=== PATIENT | male | born 1940 | race African-American/Black ===

== ENCOUNTER 2021-01-06 23:39 | Emergency (ER) | payer SELFPAY ==
[~2021-01-06] VITALS: Ht 188 cm; Wt 75.0 kg
[2021-01-07] MEDS ORDERED: SODIUM CHLORIDE 0.9% 1,000 ML IV ONE (00:30)
[2021-01-07 01:04] LABS: BASOPHILS % 0.7 % (0.0-2.0); EOSINOPHILS % 2.7 % (0.0-5.0); HEMATOCRIT. 34.9 % (42.0-52.0); HEMOGLOBIN. 11.3 g/dL (14.0-18.0); LYMPHOCYTES % 27.4 % (20.0-50.0); MEAN CORPUSCULAR HEMOGLOBIN 29.4 pg (28.0-32.0); MEAN CORPUSCULAR VOLUME 90.6 fL (80.0-94.0); MEAN PLATELET VOLUME 7.4 fl (7.4-10.4); MONOCYTES % 7.1 % (2.0-8.0); NEUTROPHILS % 62.1 % (40.0-76.0); PLATELET 261 x1000/uL (130-400); RED BLOOD CELL COUNT 3.85 mill/uL (4.7-6.1)
[2021-01-07 01:13] LABS: CHLORIDE 112 mEq/L (98-107)
[2021-01-07 04:39] VITALS: BP 133/71
[2021-01-07 05:35] LABS: CLARITY URINE CLEAR (CLEAR); COLOR URINE YELLOW (YELLOW); KETONES URINE NEGATIVE (NEGATIVE); LEUKOCYTE ESTERASE URINE NEGATIVE (NEGATIVE); NITRITE URINE NEGATIVE (NEGATIVE); OCCULT BLOOD URINE NEGATIVE (NEGATIVE); PROTEIN URINE NEGATIVE (NEGATIVE); SPECIFIC GRAVITY URINE 1.014 (1.005-1.030)
== END 2021-01-07 04:48 | disposition home or self-care (01) ==
LOC: ER 23:39
DX: R41.0 Disorientation, unspecified (principal); I10 Essential (primary) hypertension
CPT/HCPCS: 36415; 70450; 71045; 80053; 81003; 84443; 84484; 85025; 93005; 96360; 96361; 99285; J7030

== ENCOUNTER 2021-01-07 07:52 | Inpatient (IN) | payer BC, MEDICAID ==
[~2021-01-07] VITALS: Ht 188 cm; Wt 81.2 kg
[2021-01-07 09:41] LABS: BASOPHILS % 0.8 % (0.0-2.0); EOSINOPHILS % 1.7 % (0.0-5.0); HEMATOCRIT. 35.8 % (42.0-52.0); HEMOGLOBIN. 11.3 g/dL (14.0-18.0); LYMPHOCYTES % 17.6 % (20.0-50.0); MEAN CORPUSCULAR HEMOGLOBIN 28.2 pg (28.0-32.0); MEAN CORPUSCULAR VOLUME 89.5 fL (80.0-94.0); MEAN PLATELET VOLUME 7.5 fl (7.4-10.4); MONOCYTES % 5.5 % (2.0-8.0); NEUTROPHILS % 74.4 % (40.0-76.0); PLATELET 229 x1000/uL (130-400); RED BLOOD CELL COUNT 3.99 mill/uL (4.7-6.1); RED CELL DISTRIBUTION WIDTH 16.3 % (11.6-14.6)
[2021-01-07 09:43] LABS: CHLORIDE 111 mEq/L (98-107)
[2021-01-07] MEDS ORDERED: MAGNESIUM/ALUMINUM HYDROXIDE/SIMETHICONE 30ML UDC PO PRN (11:00)
[2021-01-07] MEDS ORDERED: NA PHOS,M-B/NA PHOS,DI-BA ENEMA 118ML PR PRN (11:00)
[2021-01-07] MEDS ORDERED: IPRATROPIUM/ALBUTEROL 0.5-3(2.5)MG/3ML NEB NEB PRN (11:00)
[2021-01-07] MEDS ORDERED: GUAIFENESIN 200MG/10ML SUGAR FREE UDC PO PRN (11:00)
[2021-01-07] MEDS ORDERED: HYDROCODONE/ACETAMINOPHEN 5/325MG TABLET PO PRN (11:00)
[2021-01-07] MEDS ORDERED: MORPHINE SULFATE 2 MG/ML CPJ (NOT FOR IM USE) IV PRN (11:00)
[2021-01-07] MEDS: SODIUM CHLORIDE 0.45% 1,000 ML IV SCH (12:14)
[2021-01-07] MEDS: ENOXAPARIN 40MG/0.4ML SYR SUBCUT SCH (12:15)
[2021-01-07] MEDS ORDERED: LORAZEPAM 2MG/ML CPJ IV NR (14:45)
[2021-01-07] MEDS: DIPHENHYDRAMINE 50MG/ML VIAL IV PRN ×2 (14:47→21:51)
[2021-01-07 18:16] VITALS: BP 168/102
[2021-01-07 20:00] VITALS: BP 167/90
[2021-01-07] MEDS: CLONIDINE 0.1MG TABLET PO PRN (21:51)
[2021-01-07] MEDS ORDERED: NALOXONE HCL 0.4MG/ML VIAL IV PRN (23:30)
[2021-01-08] VITALS: BP 141/90
[2021-01-08 04:00] VITALS: BP 149/82
[2021-01-08] MEDS: DIPHENHYDRAMINE 50MG/ML VIAL IV PRN (05:08)
[2021-01-08 07:06] LABS: BASOPHILS % 0.9 % (0.0-2.0); EOSINOPHILS % 2.2 % (0.0-5.0); HEMATOCRIT. 34.8 % (42.0-52.0); HEMOGLOBIN. 11.5 g/dL (14.0-18.0); MEAN CORPUSCULAR HEMOGLOBIN 29.3 pg (28.0-32.0); MEAN CORPUSCULAR VOLUME 88.6 fL (80.0-94.0); MEAN PLATELET VOLUME 7.2 fl (7.4-10.4); MONOCYTES % 6.3 % (2.0-8.0); NEUTROPHILS % 71.6 % (40.0-76.0); PLATELET 221 x1000/uL (130-400); RED BLOOD CELL COUNT 3.93 mill/uL (4.7-6.1); RED CELL DISTRIBUTION WIDTH 16.4 % (11.6-14.6)
[2021-01-08 07:15] LABS: CHLORIDE 110 mEq/L (98-107)
[2021-01-08 08:00] VITALS: BP 130/86
[2021-01-08] MEDS: ASPIRIN 81MG EC TABLET PO SCH (09:06)
[2021-01-08 12:00] VITALS: BP 123/68
[2021-01-08] MEDS: ENOXAPARIN 40MG/0.4ML SYR SUBCUT SCH (13:16)
[2021-01-08] MEDS: SODIUM CHLORIDE 0.45% 1,000 ML IV SCH (13:16)
[2021-01-08 16:00] VITALS: BP 136/83
[2021-01-08 20:00] VITALS: BP 127/80
[2021-01-08] MEDS ORDERED: *PATIENT'S OWN MEDICATION STORAGE XX SCH (22:30)
[2021-01-09] VITALS: BP 108/70
[2021-01-09 04:00] VITALS: BP 125/77
[2021-01-09] MEDS: ACETAMINOPHEN 325MG TABLET PO PRN (05:09)
[2021-01-09 08:00] VITALS: BP 153/84
[2021-01-09] MEDS: ASPIRIN 81MG EC TABLET PO SCH (09:04)
[2021-01-09 11:09] LABS: VITAMIN B12 SERUM 566 pg/mL (211-911)
[2021-01-09 12:00] VITALS: BP 140/74
[2021-01-09] MEDS: ENOXAPARIN 40MG/0.4ML SYR SUBCUT SCH (14:16)
[2021-01-09 16:00] VITALS: BP 148/82
[2021-01-09 20:00] VITALS: BP 178/95
[2021-01-09] MEDS: DIPHENHYDRAMINE 50MG/ML VIAL IV PRN (20:04)
[2021-01-10] VITALS: BP 150/79
[2021-01-10 04:00] VITALS: BP 156/75
[2021-01-10 08:00] VITALS: BP 162/96
[2021-01-10] MEDS: ASPIRIN 81MG EC TABLET PO SCH (08:58)
[2021-01-10] MEDS: SODIUM CHLORIDE 0.45% 1,000 ML IV SCH ×2 (11:13→11:14)
[2021-01-10 12:00] VITALS: BP 135/69
[2021-01-10] MEDS: ENOXAPARIN 40MG/0.4ML SYR SUBCUT SCH (13:28)
[2021-01-10 16:00] VITALS: BP 129/88
[2021-01-10 20:00] VITALS: BP 169/105
[2021-01-10] MEDS: DIPHENHYDRAMINE 50MG/ML VIAL IV PRN (20:38)
[2021-01-10] MEDS: CLONIDINE 0.1MG TABLET PO PRN (20:39)
[2021-01-11] VITALS: BP 137/71
[2021-01-11 04:00] VITALS: BP 121/68
[2021-01-11 08:00] VITALS: BP 124/57
[2021-01-11] MEDS: ASPIRIN 81MG EC TABLET PO SCH (08:52)
[2021-01-11] MEDS: SODIUM CHLORIDE 0.45% 1,000 ML IV SCH (11:32)
[2021-01-11] MEDS: LORAZEPAM 2MG/ML CPJ IV PRN ×2 (11:46→15:53)
[2021-01-11 12:00] VITALS: BP 137/65
[2021-01-11] MEDS: ENOXAPARIN 40MG/0.4ML SYR SUBCUT SCH (12:16)
[2021-01-11 16:00] VITALS: BP 118/69
[2021-01-11 20:00] VITALS: BP 159/84
[2021-01-11] MEDS: MEMANTINE HCL 5MG TABLET PO SCH (21:01)
[2021-01-12] VITALS: BP 141/85
[2021-01-12 04:00] VITALS: BP 141/80
[2021-01-12 08:00] VITALS: BP 126/62
[2021-01-12] MEDS: MEMANTINE HCL 5MG TABLET PO SCH (09:52)
[2021-01-12] MEDS: ASPIRIN 81MG EC TABLET PO SCH (09:52)
[2021-01-12] MEDS: SODIUM CHLORIDE 0.45% 1,000 ML IV SCH (10:24)
[2021-01-12 12:00] VITALS: BP 135/75
[2021-01-12] MEDS: LORAZEPAM 2MG/ML CPJ IV PRN (12:04)
[2021-01-12] MEDS: ENOXAPARIN 40MG/0.4ML SYR SUBCUT SCH (13:19)
[2021-01-12 16:00] VITALS: BP 153/85
[2021-01-12 20:00] VITALS: BP 168/93
[2021-01-12] MEDS: CLONIDINE 0.1MG TABLET PO PRN (21:33)
[2021-01-12] MEDS: DIPHENHYDRAMINE 50MG/ML VIAL IV PRN (21:33)
[2021-01-13] VITALS: BP 138/75
[2021-01-13 04:00] VITALS: BP 126/73
[2021-01-13 08:00] VITALS: BP 114/65
[2021-01-13] MEDS: MEMANTINE HCL 5MG TABLET PO SCH (09:20)
[2021-01-13] MEDS: ASPIRIN 81MG EC TABLET PO SCH (09:20)
[2021-01-13] MEDS: SODIUM CHLORIDE 0.45% 1,000 ML IV SCH (11:21)
[2021-01-13 12:00] VITALS: BP 131/77
[2021-01-13] MEDS: ENOXAPARIN 40MG/0.4ML SYR SUBCUT SCH (12:55)
[2021-01-13] MEDS: DIPHENHYDRAMINE 50MG/ML VIAL IV PRN (13:19)
[2021-01-13 16:00] VITALS: BP 120/74
[2021-01-13] MEDS: LORAZEPAM 2MG/ML CPJ IV PRN (16:26)
[2021-01-13 20:00] VITALS: BP 134/80
[2021-01-14] VITALS: BP 123/65
[2021-01-14 04:00] VITALS: BP 138/71
[2021-01-14 06:31] LABS: BASOPHILS % 1.1 % (0.0-2.0); EOSINOPHILS % 2.5 % (0.0-5.0); HEMATOCRIT. 33.4 % (42.0-52.0); HEMOGLOBIN. 11.3 g/dL (14.0-18.0); LYMPHOCYTES % 25.3 % (20.0-50.0); MEAN CORPUSCULAR VOLUME 88.8 fL (80.0-94.0); MONOCYTES % 8.2 % (2.0-8.0); NEUTROPHILS % 62.9 % (40.0-76.0); PLATELET 240 x1000/uL (130-400); RED BLOOD CELL COUNT 3.76 mill/uL (4.7-6.1); RED CELL DISTRIBUTION WIDTH 16.4 % (11.6-14.6)
[2021-01-14 06:32] LABS: CHLORIDE 108 mEq/L (98-107)
[2021-01-14 08:00] VITALS: BP 139/65
[2021-01-14] MEDS: MEMANTINE HCL 5MG TABLET PO SCH (09:04)
[2021-01-14] MEDS: ASPIRIN 81MG EC TABLET PO SCH (09:05)
[2021-01-14] MEDS: LORAZEPAM 2MG/ML CPJ IV PRN ×2 (09:27→17:11)
[2021-01-14 11:55] VITALS: BP 125/57
[2021-01-14] MEDS: SODIUM CHLORIDE 0.45% 1,000 ML IV SCH (12:39)
[2021-01-14] MEDS: ENOXAPARIN 40MG/0.4ML SYR SUBCUT SCH (12:50)
[2021-01-14 16:00] VITALS: BP 148/87
[2021-01-14 20:00] VITALS: BP 151/82
[2021-01-15] VITALS: BP 147/80
[2021-01-15 04:00] VITALS: BP 118/58
[2021-01-15] MEDS: MEMANTINE HCL 5MG TABLET PO SCH (09:01)
[2021-01-15] MEDS: ASPIRIN 81MG EC TABLET PO SCH (09:02)
[2021-01-15] MEDS: LORAZEPAM 2MG/ML CPJ IV PRN ×2 (09:02→21:29)
[2021-01-15] MEDS: SODIUM CHLORIDE 0.45% 1,000 ML IV SCH (11:40)
[2021-01-15 12:00] VITALS: BP 150/97
[2021-01-15] MEDS: ENOXAPARIN 40MG/0.4ML SYR SUBCUT SCH (13:36)
[2021-01-15 16:00] VITALS: BP 139/70
[2021-01-15 20:00] VITALS: BP 167/96
[2021-01-15] MEDS: DIPHENHYDRAMINE 50MG/ML VIAL IV PRN (22:38)
[2021-01-16 00:08] VITALS: BP 171/81
[2021-01-16 08:00] VITALS: BP 139/80
[2021-01-16] MEDS: MEMANTINE HCL 5MG TABLET PO SCH (11:14)
[2021-01-16] MEDS: ASPIRIN 81MG EC TABLET PO SCH (11:14)
[2021-01-16] MEDS: SODIUM CHLORIDE 0.45% 1,000 ML IV SCH (11:14)
[2021-01-16 12:00] VITALS: BP 154/89
[2021-01-16] MEDS: ENOXAPARIN 40MG/0.4ML SYR SUBCUT SCH (13:00)
[2021-01-16 16:00] VITALS: BP 169/87
[2021-01-16 20:39] VITALS: BP 165/95
[2021-01-16] MEDS: CLONIDINE 0.1MG TABLET PO PRN (22:48)
[2021-01-16] MEDS ORDERED: NIFE-72 PO (22:58)
[2021-01-16] MEDS ORDERED: ASPI-1160 PO (22:58)
[2021-01-16] MEDS ORDERED: TRAZ-251 PO (22:58)
[2021-01-16] MEDS ORDERED: METO25TA6 PO (22:58)
[2021-01-16] MEDS ORDERED: QUET25TA36 PO (22:58)
[2021-01-16] MEDS ORDERED: TAMS-11 (22:58)
[2021-01-16] MEDS ORDERED: ATOR40TA70 PO (22:58)
[2021-01-17 00:23] VITALS: BP 148/76
[2021-01-17 04:00] VITALS: BP 153/77
[2021-01-17 08:00] VITALS: BP 136/69
[2021-01-17] MEDS: MEMANTINE HCL 5MG TABLET PO SCH (09:02)
[2021-01-17] MEDS: ASPIRIN 81MG EC TABLET PO SCH (09:02)
[2021-01-17 12:00] VITALS: BP 149/78
[2021-01-17] MEDS: ENOXAPARIN 40MG/0.4ML SYR SUBCUT SCH (13:45)
[2021-01-17 16:00] VITALS: BP 163/106
[2021-01-17] MEDS: LORAZEPAM 1MG TABLET PO PRN (16:46)
[2021-01-17] MEDS: CLONIDINE 0.1MG TABLET PO PRN (18:19)
[2021-01-17 20:00] VITALS: BP 119/75
[2021-01-17] MEDS: DIPHENHYDRAMINE 50MG/ML VIAL IV PRN (23:11)
[2021-01-18 04:00] VITALS: BP 157/86
[2021-01-18 08:00] VITALS: BP 143/81
[2021-01-18] MEDS: ASPIRIN 81MG EC TABLET PO SCH (09:27)
[2021-01-18] MEDS: MEMANTINE HCL 5MG TABLET PO SCH (09:27)
[2021-01-18 12:00] VITALS: BP 137/75
[2021-01-18] MEDS: ENOXAPARIN 40MG/0.4ML SYR SUBCUT SCH (13:47)
[2021-01-18] MEDS: DIPHENHYDRAMINE 50MG/ML VIAL IV PRN ×2 (13:47→20:45)
[2021-01-18 16:00] VITALS: BP 143/76
[2021-01-18] MEDS: RISPERIDONE 0.5MG TABLET PO SCH (18:44)
[2021-01-18 20:00] VITALS: BP 142/72
[2021-01-18] MEDS: LORAZEPAM 1MG TABLET PO PRN (23:40)
[2021-01-19] VITALS: BP 138/71
[2021-01-19 04:00] VITALS: BP 132/74
[2021-01-19 08:00] VITALS: BP 142/61
[2021-01-19] MEDS: DIPHENHYDRAMINE 50MG/ML VIAL IV PRN ×2 (09:49→20:33)
[2021-01-19] MEDS: MEMANTINE HCL 5MG TABLET PO SCH (09:49)
[2021-01-19] MEDS: RISPERIDONE 0.5MG TABLET PO SCH ×2 (09:49→17:09)
[2021-01-19] MEDS: ASPIRIN 81MG EC TABLET PO SCH (09:49)
[2021-01-19 12:00] VITALS: BP 130/79
[2021-01-19] MEDS: ENOXAPARIN 40MG/0.4ML SYR SUBCUT SCH (12:38)
[2021-01-19 16:00] VITALS: BP 123/60
[2021-01-19 20:00] VITALS: BP 150/60
[2021-01-19] MEDS: QUETIAPINE FUMARATE 25MG TABLET PO SCH (20:33)
[2021-01-19] MEDS: ONDANSETRON HCL 4MG/2ML INJ IV PRN (21:21)
[2021-01-19] MEDS: LORAZEPAM 1MG TABLET PO PRN (21:21)
[2021-01-20] VITALS: BP 152/78
[2021-01-20] MEDS: LORAZEPAM 1MG TABLET PO PRN ×3 (02:32→22:50)
[2021-01-20 04:00] VITALS: BP 157/76
[2021-01-20] MEDS: ONDANSETRON HCL 4MG/2ML INJ IV PRN (06:25)
[2021-01-20] MEDS: DIPHENHYDRAMINE 50MG/ML VIAL IV PRN (06:26)
[2021-01-20 08:00] VITALS: BP 138/75
[2021-01-20] MEDS: ASPIRIN 81MG EC TABLET PO SCH (09:51)
[2021-01-20] MEDS: MEMANTINE HCL 5MG TABLET PO SCH (09:51)
[2021-01-20 12:00] VITALS: BP 178/83
[2021-01-20] MEDS: ENOXAPARIN 40MG/0.4ML SYR SUBCUT SCH (13:14)
[2021-01-20 16:00] VITALS: BP 168/98
[2021-01-20 20:00] VITALS: BP 177/92
[2021-01-20] MEDS: RISPERIDONE 0.5MG TABLET PO SCH (22:08)
[2021-01-20] MEDS: QUETIAPINE FUMARATE 25MG TABLET PO SCH (22:08)
[2021-01-20] MEDS: CLONIDINE 0.1MG TABLET PO PRN (22:09)
[2021-01-21] VITALS: BP 117/78
[2021-01-21 04:00] VITALS: BP 126/64
[2021-01-21 06:37] LABS: BASOPHILS % 0.6 % (0.0-2.0); EOSINOPHILS % 2.8 % (0.0-5.0); HEMATOCRIT. 33.2 % (42.0-52.0); HEMOGLOBIN. 11.2 g/dL (14.0-18.0); LYMPHOCYTES % 26.1 % (20.0-50.0); MEAN CORPUSCULAR HEMOGLOBIN 30.1 pg (28.0-32.0); MEAN CORPUSCULAR VOLUME 89.1 fL (80.0-94.0); MEAN PLATELET VOLUME 7.8 fl (7.4-10.4); MONOCYTES % 7.6 % (2.0-8.0); NEUTROPHILS % 62.9 % (40.0-76.0); PLATELET 215 x1000/uL (130-400); RED BLOOD CELL COUNT 3.73 mill/uL (4.7-6.1); RED CELL DISTRIBUTION WIDTH 16.3 % (11.6-14.6)
[2021-01-21 08:00] VITALS: BP 164/83
[2021-01-21] MEDS: ASPIRIN 81MG EC TABLET PO SCH (10:06)
[2021-01-21] MEDS: MEMANTINE HCL 5MG TABLET PO SCH (10:06)
[2021-01-21] MEDS: RISPERIDONE 0.5MG TABLET PO SCH ×2 (10:07→17:19)
[2021-01-21 12:00] VITALS: BP 142/67
[2021-01-21] MEDS: ENOXAPARIN 40MG/0.4ML SYR SUBCUT SCH (13:51)
[2021-01-21 16:00] VITALS: BP 158/82
[2021-01-21 20:42] VITALS: BP 169/85
[2021-01-21] MEDS: QUETIAPINE FUMARATE 25MG TABLET PO SCH (21:31)
[2021-01-21] MEDS: CLONIDINE 0.1MG TABLET PO PRN (22:04)
[2021-01-22] VITALS (7 sets, daily range): BP systolic 130–188; BP diastolic 69–108
[2021-01-22] MEDS: DIPHENHYDRAMINE 50MG/ML VIAL IV PRN (00:55)
[2021-01-22] MEDS: ONDANSETRON HCL 4MG/2ML INJ IV PRN (00:55)
[2021-01-22] MEDS: AMLODIPINE 5MG TABLET PO SCH (08:45)
[2021-01-22] MEDS: MEMANTINE HCL 5MG TABLET PO SCH (08:45)
[2021-01-22] MEDS: RISPERIDONE 0.5MG TABLET PO SCH ×2 (08:45→17:44)
[2021-01-22] MEDS: ASPIRIN 81MG EC TABLET PO SCH (08:45)
[2021-01-22] MEDS: ENOXAPARIN 40MG/0.4ML SYR SUBCUT SCH (13:53)
[2021-01-22] MEDS: CLONIDINE 0.1MG TABLET PO PRN (20:10)
[2021-01-22] MEDS: QUETIAPINE FUMARATE 25MG TABLET PO SCH (21:40)
[2021-01-22] MEDS: LORAZEPAM 1MG TABLET PO PRN (23:12)
[2021-01-23] VITALS: BP 147/91
[2021-01-23] MEDS: LORAZEPAM 1MG TABLET PO PRN ×2 (03:18→22:33)
[2021-01-23 08:00] VITALS: BP 144/86
[2021-01-23 08:42] LABS: BASOPHILS % 0.5 % (0.0-2.0); EOSINOPHILS % 1.9 % (0.0-5.0); HEMATOCRIT. 36.6 % (42.0-52.0); LYMPHOCYTES % 18.3 % (20.0-50.0); MEAN CORPUSCULAR HEMOGLOBIN 29.4 pg (28.0-32.0); MEAN CORPUSCULAR VOLUME 89.3 fL (80.0-94.0); MONOCYTES % 6.5 % (2.0-8.0); NEUTROPHILS % 72.8 % (40.0-76.0); PLATELET 236 x1000/uL (130-400); RED BLOOD CELL COUNT 4.09 mill/uL (4.7-6.1); RED CELL DISTRIBUTION WIDTH 16.1 % (11.6-14.6)
[2021-01-23 08:43] LABS: CHLORIDE 106 mEq/L (98-107)
[2021-01-23] MEDS: AMLODIPINE 5MG TABLET PO SCH (10:03)
[2021-01-23] MEDS: MEMANTINE HCL 5MG TABLET PO SCH (10:03)
[2021-01-23] MEDS: RISPERIDONE 0.5MG TABLET PO SCH ×2 (10:03→18:01)
[2021-01-23] MEDS: MULTIVITAMINS,THER W-MINERALS TABLET PO SCH (10:03)
[2021-01-23] MEDS: ASPIRIN 81MG EC TABLET PO SCH (10:07)
[2021-01-23 12:00] VITALS: BP 150/80
[2021-01-23] MEDS: ENOXAPARIN 40MG/0.4ML SYR SUBCUT SCH (13:29)
[2021-01-23 16:00] VITALS: BP 152/90
[2021-01-23 20:00] VITALS: BP 159/91
[2021-01-23] MEDS: QUETIAPINE FUMARATE 25MG TABLET PO SCH (21:20)
[2021-01-24] VITALS: BP 118/66
[2021-01-24 04:00] VITALS: BP 103/66
[2021-01-24] MEDS: DIPHENHYDRAMINE 50MG/ML VIAL IV PRN (06:14)
[2021-01-24 08:00] VITALS: BP 186/97
[2021-01-24] MEDS: AMLODIPINE 5MG TABLET PO SCH (08:57)
[2021-01-24] MEDS: RISPERIDONE 0.5MG TABLET PO SCH ×2 (08:57→17:24)
[2021-01-24] MEDS: ASPIRIN 81MG EC TABLET PO SCH (08:57)
[2021-01-24] MEDS: MEMANTINE HCL 5MG TABLET PO SCH (08:57)
[2021-01-24] MEDS: MULTIVITAMINS,THER W-MINERALS TABLET PO SCH (09:02)
[2021-01-24 12:00] VITALS: BP 124/71
[2021-01-24] MEDS: ENOXAPARIN 40MG/0.4ML SYR SUBCUT SCH ×2 (13:00→13:17)
[2021-01-24] MEDS: LORAZEPAM 1MG TABLET PO PRN ×2 (13:17→22:47)
[2021-01-24 16:00] VITALS: BP 151/96
[2021-01-24 20:00] VITALS: BP 164/82
[2021-01-24] MEDS: QUETIAPINE FUMARATE 25MG TABLET PO SCH (21:50)
[2021-01-25] VITALS: BP 156/82
[2021-01-25 08:00] VITALS: BP 153/82
[2021-01-25] MEDS: MULTIVITAMINS,THER W-MINERALS TABLET PO SCH (09:20)
[2021-01-25] MEDS: RISPERIDONE 0.5MG TABLET PO SCH ×2 (09:20→16:33)
[2021-01-25] MEDS: ASPIRIN 81MG EC TABLET PO SCH (09:20)
[2021-01-25] MEDS: AMLODIPINE 5MG TABLET PO SCH (09:20)
[2021-01-25] MEDS: MEMANTINE HCL 5MG TABLET PO SCH (09:20)
[2021-01-25 11:58] VITALS: BP 137/80
[2021-01-25] MEDS: ENOXAPARIN 40MG/0.4ML SYR SUBCUT SCH (12:05)
[2021-01-25 15:54] VITALS: BP_SYST 148; BP_SYST 159; BP_DIAS 78; BP_DIAS 83
[2021-01-25 20:00] VITALS: BP 140/78
[2021-01-25] MEDS: QUETIAPINE FUMARATE 25MG TABLET PO SCH (21:48)
[2021-01-26] VITALS: BP 118/74
[2021-01-26] MEDS: DIPHENHYDRAMINE 50MG/ML VIAL IV PRN (00:06)
[2021-01-26 04:00] VITALS: BP 153/92
[2021-01-26 08:00] VITALS: BP 139/85
[2021-01-26] MEDS: MULTIVITAMINS,THER W-MINERALS TABLET PO SCH (09:28)
[2021-01-26] MEDS: LORAZEPAM 1MG TABLET PO PRN (09:29)
[2021-01-26] MEDS: AMLODIPINE 5MG TABLET PO SCH (09:29)
[2021-01-26] MEDS: RISPERIDONE 0.5MG TABLET PO SCH ×2 (09:29→16:19)
[2021-01-26] MEDS: ASPIRIN 81MG EC TABLET PO SCH (09:30)
[2021-01-26] MEDS: MEMANTINE HCL 5MG TABLET PO SCH (09:31)
[2021-01-26 12:00] VITALS: BP 132/65
[2021-01-26] MEDS: ENOXAPARIN 40MG/0.4ML SYR SUBCUT SCH (12:27)
[2021-01-26 15:46] VITALS: BP 132/68
[2021-01-26 20:00] VITALS: BP 141/74
[2021-01-26] MEDS: QUETIAPINE FUMARATE 25MG TABLET PO SCH (20:42)
[2021-01-27] VITALS: BP 114/78
[2021-01-27 08:00] VITALS: BP 159/81
[2021-01-27] MEDS: ASPIRIN 81MG EC TABLET PO SCH (08:35)
[2021-01-27] MEDS: MULTIVITAMINS,THER W-MINERALS TABLET PO SCH (08:35)
[2021-01-27] MEDS: MEMANTINE HCL 5MG TABLET PO SCH (08:35)
[2021-01-27] MEDS: RISPERIDONE 0.5MG TABLET PO SCH ×2 (08:35→17:53)
[2021-01-27] MEDS: AMLODIPINE 5MG TABLET PO SCH (08:35)
[2021-01-27 12:00] VITALS: BP 130/79
[2021-01-27] MEDS: ENOXAPARIN 40MG/0.4ML SYR SUBCUT SCH (12:40)
[2021-01-27 16:00] VITALS: BP 159/96
[2021-01-27] MEDS: ACETAMINOPHEN 325MG TABLET PO PRN (16:13)
[2021-01-27] MEDS: DOCUSATE SODIUM 100MG CAPSULE PO PRN (18:13)
[2021-01-27 20:00] VITALS: BP 122/74
[2021-01-27] MEDS: QUETIAPINE FUMARATE 25MG TABLET PO SCH (20:20)
[2021-01-27] MEDS: DIPHENHYDRAMINE 50MG/ML VIAL IV PRN (21:40)
[2021-01-28] VITALS: BP 131/65
[2021-01-28] MEDS ORDERED: LORAZEPAM 2MG/ML CPJ IV PRN (01:00)
[2021-01-28 04:00] VITALS: BP 139/81
[2021-01-28 08:00] VITALS: BP 106/76
[2021-01-28] MEDS: ASPIRIN 81MG EC TABLET PO SCH (08:54)
[2021-01-28] MEDS: MEMANTINE HCL 5MG TABLET PO SCH (08:54)
[2021-01-28] MEDS: RISPERIDONE 0.5MG TABLET PO SCH ×2 (08:54→17:20)
[2021-01-28] MEDS: MULTIVITAMINS,THER W-MINERALS TABLET PO SCH (08:54)
[2021-01-28] MEDS: AMLODIPINE 5MG TABLET PO SCH ×2 (08:54→13:50)
[2021-01-28 12:00] VITALS: BP 140/91
[2021-01-28] MEDS: ENOXAPARIN 40MG/0.4ML SYR SUBCUT SCH (13:49)
[2021-01-28] MEDS: ACETAMINOPHEN 325MG TABLET PO PRN (14:38)
[2021-01-28 16:00] VITALS: BP 118/78
[2021-01-28 20:00] VITALS: BP_SYST 108; BP_SYST 115; BP_DIAS 70; BP_DIAS 79
[2021-01-28] MEDS: DIPHENHYDRAMINE 50MG/ML VIAL IV PRN (20:21)
[2021-01-28] MEDS: QUETIAPINE FUMARATE 25MG TABLET PO SCH (20:21)
[2021-01-29] VITALS: BP 147/91
[2021-01-29 04:00] VITALS: BP 138/90
[2021-01-29 08:00] VITALS: BP 131/74
[2021-01-29 08:23] LABS: BASOPHILS % 0.3 % (0.0-2.0); EOSINOPHILS % 1.1 % (0.0-5.0); HEMATOCRIT. 33.9 % (42.0-52.0); HEMOGLOBIN. 11.4 g/dL (14.0-18.0); MEAN CORPUSCULAR HEMOGLOBIN 29.8 pg (28.0-32.0); MEAN CORPUSCULAR VOLUME 88.8 fL (80.0-94.0); MEAN PLATELET VOLUME 8.3 fl (7.4-10.4); MONOCYTES % 8.1 % (2.0-8.0); NEUTROPHILS % 74.5 % (40.0-76.0); PLATELET 251 x1000/uL (130-400); RED BLOOD CELL COUNT 3.82 mill/uL (4.7-6.1); RED CELL DISTRIBUTION WIDTH 15.9 % (11.6-14.6)
[2021-01-29] MEDS: ASPIRIN 81MG EC TABLET PO SCH (09:35)
[2021-01-29] MEDS: MULTIVITAMINS,THER W-MINERALS TABLET PO SCH (09:36)
[2021-01-29] MEDS: RISPERIDONE 0.5MG TABLET PO SCH ×2 (09:36→17:17)
[2021-01-29] MEDS: AMLODIPINE 5MG TABLET PO SCH (09:36)
[2021-01-29] MEDS: MEMANTINE HCL 5MG TABLET PO SCH (09:36)
[2021-01-29 12:00] VITALS: BP 137/86
[2021-01-29] MEDS: ENOXAPARIN 40MG/0.4ML SYR SUBCUT SCH (12:05)
[2021-01-29 16:00] VITALS: BP 128/68
[2021-01-29 20:00] VITALS: BP 126/74
[2021-01-29] MEDS: QUETIAPINE FUMARATE 25MG TABLET PO SCH (20:41)
[2021-01-29] MEDS: ACETAMINOPHEN 325MG TABLET PO PRN (20:41)
[2021-01-29] MEDS: LORAZEPAM 2MG/ML CPJ IV PRN (23:45)
[2021-01-30] VITALS: BP 120/80
[2021-01-30] MEDS: DIPHENHYDRAMINE 50MG/ML VIAL IV PRN (03:59)
[2021-01-30 04:00] VITALS: BP 137/80
[2021-01-30 08:00] VITALS: BP 131/77
[2021-01-30] MEDS: MULTIVITAMINS,THER W-MINERALS TABLET PO SCH (09:48)
[2021-01-30] MEDS: ASPIRIN 81MG EC TABLET PO SCH (09:48)
[2021-01-30] MEDS: RISPERIDONE 0.5MG TABLET PO SCH (09:48)
[2021-01-30] MEDS: MEMANTINE HCL 5MG TABLET PO SCH (09:48)
[2021-01-30] MEDS: AMLODIPINE 5MG TABLET PO SCH (09:49)
[2021-01-30 12:00] VITALS: BP 131/93
[2021-01-30] MEDS: ENOXAPARIN 40MG/0.4ML SYR SUBCUT SCH (13:58)
[2021-01-30] MEDS: DOCUSATE SODIUM 100MG CAPSULE PO PRN (15:07)
[2021-01-30 16:00] VITALS: BP 137/70
[2021-01-30] MEDS: RISPERIDONE 1MG TABLET PO SCH (17:58)
[2021-01-30] MEDS: LORAZEPAM 2MG/ML CPJ IV PRN (19:18)
[2021-01-30 20:00] VITALS: BP 137/83
[2021-01-30] MEDS: QUETIAPINE FUMARATE 25MG TABLET PO SCH (20:49)
[2021-01-31 04:00] VITALS: BP 142/85
[2021-01-31 08:00] VITALS: BP 150/82
[2021-01-31] MEDS: MEMANTINE HCL 5MG TABLET PO SCH (09:14)
[2021-01-31] MEDS: ASPIRIN 81MG EC TABLET PO SCH (09:14)
[2021-01-31] MEDS: RISPERIDONE 1MG TABLET PO SCH ×2 (09:14→17:07)
[2021-01-31] MEDS: MULTIVITAMINS,THER W-MINERALS TABLET PO SCH (09:15)
[2021-01-31] MEDS: AMLODIPINE 5MG TABLET PO SCH (09:15)
[2021-01-31 12:00] VITALS: BP 137/79
[2021-01-31] MEDS: ENOXAPARIN 40MG/0.4ML SYR SUBCUT SCH (13:56)
[2021-01-31 16:00] VITALS: BP 127/79
[2021-01-31 20:00] VITALS: BP 155/93
[2021-01-31] MEDS: QUETIAPINE FUMARATE 25MG TABLET PO SCH (20:29)
[2021-02-01] VITALS: BP 118/79
[2021-02-01 08:00] VITALS: BP 132/88
[2021-02-01] MEDS: RISPERIDONE 1MG TABLET PO SCH ×2 (09:56→17:46)
[2021-02-01] MEDS: ASPIRIN 81MG EC TABLET PO SCH (09:57)
[2021-02-01] MEDS: AMLODIPINE 5MG TABLET PO SCH (09:57)
[2021-02-01] MEDS: DOCUSATE SODIUM 100MG CAPSULE PO PRN (09:57)
[2021-02-01] MEDS: MEMANTINE HCL 5MG TABLET PO SCH (09:58)
[2021-02-01] MEDS: MULTIVITAMINS,THER W-MINERALS TABLET PO SCH (09:58)
[2021-02-01 12:00] VITALS: BP 120/64
[2021-02-01] MEDS: ENOXAPARIN 40MG/0.4ML SYR SUBCUT SCH (13:24)
[2021-02-01 16:00] VITALS: BP 121/69
[2021-02-01 20:00] VITALS: BP 140/68
[2021-02-01] MEDS: QUETIAPINE FUMARATE 25MG TABLET PO SCH (20:20)
[2021-02-02] VITALS: BP 130/75
[2021-02-02 04:00] VITALS: BP 119/48
[2021-02-02 08:00] VITALS: BP 138/70
[2021-02-02] MEDS: ASPIRIN 81MG EC TABLET PO SCH (08:57)
[2021-02-02] MEDS: MEMANTINE HCL 5MG TABLET PO SCH (08:57)
[2021-02-02] MEDS: MULTIVITAMINS,THER W-MINERALS TABLET PO SCH (08:57)
[2021-02-02] MEDS: RISPERIDONE 1MG TABLET PO SCH ×2 (08:58→17:36)
[2021-02-02] MEDS: DOCUSATE SODIUM 100MG CAPSULE PO PRN (08:58)
[2021-02-02] MEDS: AMLODIPINE 5MG TABLET PO SCH (09:02)
[2021-02-02] MEDS: LORAZEPAM 2MG/ML CPJ IV PRN (09:38)
[2021-02-02 12:00] VITALS: BP 130/72
[2021-02-02] MEDS: ENOXAPARIN 40MG/0.4ML SYR SUBCUT SCH (13:19)
[2021-02-02 16:00] VITALS: BP 120/78
[2021-02-02 20:00] VITALS: BP 106/58
[2021-02-02] MEDS: QUETIAPINE FUMARATE 25MG TABLET PO SCH (20:04)
[2021-02-03] VITALS: BP 127/65
[2021-02-03] MEDS: DIPHENHYDRAMINE 50MG/ML VIAL IV PRN (02:25)
[2021-02-03 08:00] VITALS: BP 154/69
[2021-02-03 12:00] VITALS: BP 164/77
[2021-02-03] MEDS: ASPIRIN 81MG EC TABLET PO SCH (15:52)
[2021-02-03] MEDS: AMLODIPINE 5MG TABLET PO SCH (15:53)
[2021-02-03] MEDS: MEMANTINE HCL 5MG TABLET PO SCH (15:53)
[2021-02-03] MEDS: MULTIVITAMINS,THER W-MINERALS TABLET PO SCH (15:54)
[2021-02-03] MEDS: RISPERIDONE 1MG TABLET PO SCH ×2 (15:54→18:17)
[2021-02-03] MEDS: LORAZEPAM 2MG/ML CPJ IV PRN (15:55)
[2021-02-03] MEDS: ENOXAPARIN 40MG/0.4ML SYR SUBCUT SCH (15:55)
[2021-02-03 16:00] VITALS: BP 167/71
[2021-02-03 18:13] LABS: BASOPHILS % 0.6 % (0.0-2.0); EOSINOPHILS % 1.4 % (0.0-5.0); HEMATOCRIT. 31.5 % (42.0-52.0); HEMOGLOBIN. 10.6 g/dL (14.0-18.0); LYMPHOCYTES % 15.3 % (20.0-50.0); MEAN CORPUSCULAR HEMOGLOBIN 29.5 pg (28.0-32.0); MEAN CORPUSCULAR VOLUME 87.6 fL (80.0-94.0); MONOCYTES % 5.9 % (2.0-8.0); NEUTROPHILS % 76.8 % (40.0-76.0); PLATELET 278 x1000/uL (130-400); RED CELL DISTRIBUTION WIDTH 15.5 % (11.6-14.6)
[2021-02-03 18:23] LABS: CHLORIDE 105 mEq/L (98-107)
[2021-02-03 20:00] VITALS: BP 161/65
[2021-02-03] MEDS: QUETIAPINE FUMARATE 25MG TABLET PO SCH (21:20)
[2021-02-03] MEDS: CLONIDINE 0.1MG TABLET PO PRN (21:20)
[2021-02-04] VITALS: BP 107/65
[2021-02-04 04:00] VITALS: BP 100/72
[2021-02-04] MEDS: LORAZEPAM 2MG/ML CPJ IV PRN ×2 (05:37→15:52)
[2021-02-04 08:00] VITALS: BP 101/52
[2021-02-04 12:00] VITALS: BP 119/60
[2021-02-04] MEDS: ASPIRIN 81MG EC TABLET PO SCH (12:14)
[2021-02-04] MEDS: MULTIVITAMINS,THER W-MINERALS TABLET PO SCH (12:14)
[2021-02-04] MEDS: AMLODIPINE 5MG TABLET PO SCH (12:15)
[2021-02-04] MEDS: MEMANTINE HCL 5MG TABLET PO SCH (12:18)
[2021-02-04] MEDS: RISPERIDONE 1MG TABLET PO SCH ×2 (12:18→18:30)
[2021-02-04] MEDS: ENOXAPARIN 40MG/0.4ML SYR SUBCUT SCH (12:24)
[2021-02-04 16:00] VITALS: BP 115/62
[2021-02-04 20:00] VITALS: BP 115/73
[2021-02-04] MEDS: QUETIAPINE FUMARATE 25MG TABLET PO SCH (22:06)
[2021-02-05] VITALS: BP 122/66
[2021-02-05] MEDS: LORAZEPAM 2MG/ML CPJ IV PRN ×3 (02:37→23:03)
[2021-02-05 04:00] VITALS: BP 125/77
[2021-02-05 07:47] VITALS: BP 135/71
[2021-02-05] MEDS: MEMANTINE HCL 5MG TABLET PO SCH (09:28)
[2021-02-05] MEDS: AMLODIPINE 5MG TABLET PO SCH (09:28)
[2021-02-05] MEDS: RISPERIDONE 1MG TABLET PO SCH ×2 (09:28→19:02)
[2021-02-05] MEDS: MULTIVITAMINS,THER W-MINERALS TABLET PO SCH (09:28)
[2021-02-05] MEDS: ASPIRIN 81MG EC TABLET PO SCH (09:28)
[2021-02-05] MEDS: ENOXAPARIN 40MG/0.4ML SYR SUBCUT SCH (13:47)
[2021-02-05 16:27] VITALS: BP 132/76
[2021-02-05 20:00] VITALS: BP 108/59
[2021-02-05] MEDS: QUETIAPINE FUMARATE 25MG TABLET PO SCH (20:18)
[2021-02-06 04:00] VITALS: BP 115/68
[2021-02-06 08:00] VITALS: BP 112/68
[2021-02-06] MEDS: MEMANTINE HCL 5MG TABLET PO SCH (09:44)
[2021-02-06] MEDS: MULTIVITAMINS,THER W-MINERALS TABLET PO SCH (09:45)
[2021-02-06] MEDS: RISPERIDONE 1MG TABLET PO SCH ×2 (09:45→17:14)
[2021-02-06] MEDS: AMLODIPINE 5MG TABLET PO SCH (09:45)
[2021-02-06 12:00] VITALS: BP 94/61
[2021-02-06] MEDS: ENOXAPARIN 40MG/0.4ML SYR SUBCUT SCH (13:15)
[2021-02-06 20:00] VITALS: BP 119/53
[2021-02-06] MEDS: QUETIAPINE FUMARATE 25MG TABLET PO SCH (21:24)
[2021-02-06] MEDS: LORAZEPAM 2MG/ML CPJ IV PRN (22:15)
[2021-02-07] VITALS: BP 139/62
[2021-02-07 04:00] VITALS: BP 135/71
[2021-02-07] MEDS: LORAZEPAM 2MG/ML CPJ IV PRN (05:40)
[2021-02-07 08:00] VITALS: BP 113/70
[2021-02-07 12:00] VITALS: BP 116/59
[2021-02-07] MEDS: MULTIVITAMINS,THER W-MINERALS TABLET PO SCH (12:53)
[2021-02-07] MEDS: MEMANTINE HCL 5MG TABLET PO SCH (12:53)
[2021-02-07] MEDS: AMLODIPINE 5MG TABLET PO SCH (12:53)
[2021-02-07] MEDS: RISPERIDONE 1MG TABLET PO SCH ×2 (12:53→17:00)
[2021-02-07] MEDS: ENOXAPARIN 40MG/0.4ML SYR SUBCUT SCH (12:56)
[2021-02-07 16:00] VITALS: BP 110/63
[2021-02-07 16:40] LABS: CLARITY URINE CLOUDY (CLEAR); COLOR URINE DARK YELLOW (YELLOW); KETONES URINE TRACE (NEGATIVE); LEUKOCYTE ESTERASE URINE 1+ (NEGATIVE); NITRITE URINE NEGATIVE (NEGATIVE); OCCULT BLOOD URINE NEGATIVE (NEGATIVE); PROTEIN URINE 1+ (NEGATIVE); SPECIFIC GRAVITY URINE 1.023 (1.005-1.030)
[2021-02-07 20:00] VITALS: BP 103/66
[2021-02-07] MEDS: QUETIAPINE FUMARATE 25MG TABLET PO SCH (21:47)
[2021-02-08] VITALS: BP 132/94
[2021-02-08] MEDS: LORAZEPAM 2MG/ML CPJ IV PRN ×3 (01:35→16:29)
[2021-02-08 04:00] VITALS: BP 128/88
[2021-02-08 08:00] VITALS: BP 127/75
[2021-02-08] MEDS: AMLODIPINE 5MG TABLET PO SCH (09:00)
[2021-02-08] MEDS: RISPERIDONE 1MG TABLET PO SCH ×2 (09:30→16:49)
[2021-02-08] MEDS: MEMANTINE HCL 5MG TABLET PO SCH (09:30)
[2021-02-08] MEDS: MULTIVITAMINS,THER W-MINERALS TABLET PO SCH (09:31)
[2021-02-08 12:00] VITALS: BP 107/84
[2021-02-08] MEDS: ENOXAPARIN 40MG/0.4ML SYR SUBCUT SCH (13:01)
[2021-02-08 16:00] VITALS: BP 128/71
[2021-02-08 20:00] VITALS: BP 134/74
[2021-02-08] MEDS: QUETIAPINE FUMARATE 25MG TABLET PO SCH (21:48)
[2021-02-09] VITALS: BP 129/71
[2021-02-09 04:00] VITALS: BP 142/77
[2021-02-09] MEDS: LORAZEPAM 2MG/ML CPJ IV PRN (06:29)
[2021-02-09 08:00] VITALS: BP 110/89
[2021-02-09] MEDS: RISPERIDONE 1MG TABLET PO SCH ×2 (08:46→17:33)
[2021-02-09] MEDS: MULTIVITAMINS,THER W-MINERALS TABLET PO SCH (08:46)
[2021-02-09] MEDS: AMLODIPINE 5MG TABLET PO SCH (08:52)
[2021-02-09 09:00] VITALS: BP 114/77
[2021-02-09] MEDS: ENOXAPARIN 40MG/0.4ML SYR SUBCUT SCH (12:06)
[2021-02-09 16:00] VITALS: BP 113/70
[2021-02-09] MEDS: QUETIAPINE FUMARATE 25MG TABLET PO SCH (20:33)
[2021-02-10] VITALS: BP 112/58
[2021-02-10 04:00] VITALS: BP 112/60
[2021-02-10 08:00] VITALS: BP 120/73
[2021-02-10] MEDS: MULTIVITAMINS,THER W-MINERALS TABLET PO SCH (08:47)
[2021-02-10] MEDS: AMLODIPINE 5MG TABLET PO SCH (08:47)
[2021-02-10] MEDS: RISPERIDONE 1MG TABLET PO SCH ×2 (08:47→16:58)
[2021-02-10 12:00] VITALS: BP 123/55
[2021-02-10] MEDS: ENOXAPARIN 40MG/0.4ML SYR SUBCUT SCH (13:21)
[2021-02-10 16:00] VITALS: BP 127/50
[2021-02-10] MEDS: QUETIAPINE FUMARATE 25MG TABLET PO SCH (20:28)
[2021-02-11] VITALS: BP 120/71
[2021-02-11 04:00] VITALS: BP 133/76
[2021-02-11 08:00] VITALS: BP 125/68
[2021-02-11] MEDS: RISPERIDONE 1MG TABLET PO SCH ×2 (09:00→16:46)
[2021-02-11] MEDS: MULTIVITAMINS,THER W-MINERALS TABLET PO SCH (09:00)
[2021-02-11] MEDS: AMLODIPINE 5MG TABLET PO SCH (09:00)
[2021-02-11 12:00] VITALS: BP 125/65
[2021-02-11] MEDS: ENOXAPARIN 40MG/0.4ML SYR SUBCUT SCH (13:00)
[2021-02-11 16:00] VITALS: BP 108/60
[2021-02-11 20:00] VITALS: BP 144/79
[2021-02-11] MEDS: QUETIAPINE FUMARATE 25MG TABLET PO SCH (21:43)
[2021-02-12] VITALS: BP 138/71
[2021-02-12] MEDS: LORAZEPAM 2MG/ML CPJ IV PRN ×2 (02:05→20:33)
[2021-02-12 04:00] VITALS: BP 125/70
[2021-02-12 08:00] VITALS: BP 134/67
[2021-02-12] MEDS: MULTIVITAMINS,THER W-MINERALS TABLET PO SCH (08:52)
[2021-02-12] MEDS: AMLODIPINE 5MG TABLET PO SCH (08:53)
[2021-02-12] MEDS: RISPERIDONE 1MG TABLET PO SCH ×2 (08:53→17:26)
[2021-02-12 12:00] VITALS: BP 131/68
[2021-02-12] MEDS: ENOXAPARIN 40MG/0.4ML SYR SUBCUT SCH (12:08)
[2021-02-12 16:00] VITALS: BP 116/69
[2021-02-12 20:00] VITALS: BP 133/72
[2021-02-12] MEDS: QUETIAPINE FUMARATE 25MG TABLET PO SCH (20:49)
[2021-02-13] MEDS: LORAZEPAM 2MG/ML CPJ IV PRN (02:35)
[2021-02-13 06:09] LABS: BASOPHILS % 0.5 % (0.0-2.0); HEMATOCRIT. 31.6 % (42.0-52.0); HEMOGLOBIN. 10.6 g/dL (14.0-18.0); LYMPHOCYTES % 19.8 % (20.0-50.0); MEAN CORPUSCULAR HEMOGLOBIN 29.1 pg (28.0-32.0); MEAN CORPUSCULAR VOLUME 86.8 fL (80.0-94.0); MEAN PLATELET VOLUME 7.8 fl (7.4-10.4); NEUTROPHILS % 70.7 % (40.0-76.0); PLATELET 268 x1000/uL (130-400); RED BLOOD CELL COUNT 3.64 mill/uL (4.7-6.1); RED CELL DISTRIBUTION WIDTH 15.6 % (11.6-14.6)
[2021-02-13] MEDS: AMLODIPINE 5MG TABLET PO SCH (10:00)
[2021-02-13] MEDS: RISPERIDONE 1MG TABLET PO SCH ×2 (10:00→18:05)
[2021-02-13] MEDS: MULTIVITAMINS,THER W-MINERALS TABLET PO SCH (10:00)
[2021-02-13] MEDS: ENOXAPARIN 40MG/0.4ML SYR SUBCUT SCH (13:35)
[2021-02-13 20:00] VITALS: BP 129/67
[2021-02-13] MEDS: QUETIAPINE FUMARATE 25MG TABLET PO SCH (21:58)
[2021-02-14] MEDS: LORAZEPAM 2MG/ML CPJ IV PRN (00:37)
[2021-02-14 04:00] VITALS: BP 128/68
[2021-02-14 08:00] VITALS: BP 142/73
[2021-02-14] MEDS: RISPERIDONE 1MG TABLET PO SCH ×2 (09:23→17:52)
[2021-02-14] MEDS: MULTIVITAMINS,THER W-MINERALS TABLET PO SCH (09:23)
[2021-02-14] MEDS: AMLODIPINE 5MG TABLET PO SCH (09:25)
[2021-02-14 12:00] VITALS: BP 121/62
[2021-02-14] MEDS: ENOXAPARIN 40MG/0.4ML SYR SUBCUT SCH (13:16)
[2021-02-14 16:00] VITALS: BP 138/69
[2021-02-14 20:00] VITALS: BP 115/66
[2021-02-14] MEDS: QUETIAPINE FUMARATE 25MG TABLET PO SCH (21:01)
[2021-02-15] VITALS: BP 129/64
[2021-02-15 04:00] VITALS: BP 107/59
[2021-02-15] MEDS: RISPERIDONE 1MG TABLET PO SCH ×2 (08:54→18:23)
[2021-02-15] MEDS: AMLODIPINE 5MG TABLET PO SCH (08:54)
[2021-02-15] MEDS: MULTIVITAMINS,THER W-MINERALS TABLET PO SCH (08:54)
[2021-02-15] MEDS: LORAZEPAM 2MG/ML CPJ IV PRN ×2 (12:32→20:31)
[2021-02-15] MEDS: ENOXAPARIN 40MG/0.4ML SYR SUBCUT SCH (13:49)
[2021-02-15 20:00] VITALS: BP 102/61
[2021-02-15] MEDS: QUETIAPINE FUMARATE 25MG TABLET PO SCH (20:31)
[2021-02-16] VITALS: BP 91/47
[2021-02-16 04:00] VITALS: BP 89/47
[2021-02-16 08:00] VITALS: BP 108/60
[2021-02-16] MEDS: AMLODIPINE 5MG TABLET PO SCH (09:00)
[2021-02-16] MEDS: MULTIVITAMINS,THER W-MINERALS TABLET PO SCH (09:30)
[2021-02-16] MEDS: RISPERIDONE 1MG TABLET PO SCH ×2 (09:30→16:08)
[2021-02-16 12:00] VITALS: BP 124/66
[2021-02-16] MEDS: ENOXAPARIN 40MG/0.4ML SYR SUBCUT SCH (12:30)
[2021-02-16 16:00] VITALS: BP 111/67
[2021-02-16] MEDS: LORAZEPAM 2MG/ML CPJ IV PRN (17:27)
[2021-02-16 20:00] VITALS: BP 107/58
[2021-02-16] MEDS: QUETIAPINE FUMARATE 25MG TABLET PO SCH (20:09)
[2021-02-17] VITALS: BP 107/53
[2021-02-17] MEDS: LORAZEPAM 2MG/ML CPJ IV PRN ×2 (00:48→16:47)
[2021-02-17 04:00] VITALS: BP 116/51
[2021-02-17 08:00] VITALS: BP 160/95
[2021-02-17] MEDS: MULTIVITAMINS,THER W-MINERALS TABLET PO SCH (08:49)
[2021-02-17] MEDS: AMLODIPINE 5MG TABLET PO SCH (08:49)
[2021-02-17] MEDS: RISPERIDONE 1MG TABLET PO SCH ×2 (08:49→17:14)
[2021-02-17 12:00] VITALS: BP 134/69
[2021-02-17] MEDS: ENOXAPARIN 40MG/0.4ML SYR SUBCUT SCH (14:02)
[2021-02-17 16:00] VITALS: BP 128/81
[2021-02-17 20:00] VITALS: BP 100/59
[2021-02-17] MEDS: LORAZEPAM 2MG/ML CPJ IM PRN (20:25)
[2021-02-18] VITALS: BP 107/68
[2021-02-18 04:00] VITALS: BP 136/73
[2021-02-18] MEDS: LORAZEPAM 2MG/ML CPJ IM PRN (05:38)
[2021-02-18 08:00] VITALS: BP 130/80
[2021-02-18] MEDS: MULTIVITAMINS,THER W-MINERALS TABLET PO SCH (08:11)
[2021-02-18] MEDS: AMLODIPINE 5MG TABLET PO SCH (08:11)
[2021-02-18] MEDS: RISPERIDONE 1MG TABLET PO SCH ×2 (08:12→17:41)
[2021-02-18 12:00] VITALS: BP 152/83
[2021-02-18] MEDS: ENOXAPARIN 40MG/0.4ML SYR SUBCUT SCH (12:28)
[2021-02-18 16:00] VITALS: BP 123/68
[2021-02-18 20:00] VITALS: BP 117/68
[2021-02-19 04:00] VITALS: BP 110/74
[2021-02-19 07:45] LABS: CHLORIDE 103 mEq/L (98-107)
[2021-02-19 08:00] VITALS: BP 130/70
[2021-02-19] MEDS: AMLODIPINE 5MG TABLET PO SCH (08:46)
[2021-02-19] MEDS: MULTIVITAMINS,THER W-MINERALS TABLET PO SCH (08:46)
[2021-02-19] MEDS: RISPERIDONE 1MG TABLET PO SCH ×2 (08:46→17:04)
[2021-02-19 08:50] LABS: HEMATOCRIT. 32.4 % (42.0-52.0); HEMOGLOBIN. 10.8 g/dL (14.0-18.0); MEAN CORPUSCULAR HEMOGLOBIN 28.9 pg (28.0-32.0); MEAN CORPUSCULAR VOLUME 86.4 fL (80.0-94.0); MEAN PLATELET VOLUME 8.5 fl (7.4-10.4); PLATELET 196 x1000/uL (130-400); RED BLOOD CELL COUNT 3.75 mill/uL (4.7-6.1); RED CELL DISTRIBUTION WIDTH 15.2 % (11.6-14.6)
[2021-02-19 12:00] VITALS: BP 125/62
[2021-02-19] MEDS: ENOXAPARIN 40MG/0.4ML SYR SUBCUT SCH (12:32)
[2021-02-19] MEDS: LORAZEPAM 2MG/ML CPJ IM PRN ×2 (14:15→22:43)
[2021-02-19 16:00] VITALS: BP 120/75
[2021-02-19 16:54] LABS: PLATELET ESTIMATE NORMAL
[2021-02-19 20:00] VITALS: BP 108/57
[2021-02-20] VITALS: BP 101/63
[2021-02-20 04:00] VITALS: BP 131/62
[2021-02-20 08:00] VITALS: BP 133/80
[2021-02-20] MEDS: RISPERIDONE 1MG TABLET PO SCH ×2 (08:58→17:28)
[2021-02-20] MEDS: LORAZEPAM 2MG/ML CPJ IM PRN (08:59)
[2021-02-20] MEDS: MULTIVITAMINS,THER W-MINERALS TABLET PO SCH (08:59)
[2021-02-20 12:00] VITALS: BP 106/80
[2021-02-20] MEDS: ENOXAPARIN 40MG/0.4ML SYR SUBCUT SCH (12:52)
[2021-02-20] MEDS: ONDANSETRON 4MG ODT PO PRN (12:52)
[2021-02-20 16:00] VITALS: BP 110/85
[2021-02-20 20:00] VITALS: BP 115/82
[2021-02-20] MEDS ORDERED: LORAZEPAM 2MG/ML CPJ IM PRN (20:00)
[2021-02-21] VITALS: BP 112/84
[2021-02-21 04:00] VITALS: BP 135/75
[2021-02-21 08:00] VITALS: BP 111/72
[2021-02-21] MEDS: RISPERIDONE 1MG TABLET PO SCH ×2 (08:51→18:39)
[2021-02-21] MEDS: ONDANSETRON 4MG ODT PO PRN (11:03)
[2021-02-21 12:00] VITALS: BP 125/71
[2021-02-21] MEDS: POLYETHYLENE GLYCOL 3350 (17GM) 1 DOSE PACK PO PRN (14:37)
[2021-02-21] MEDS: ENOXAPARIN 40MG/0.4ML SYR SUBCUT SCH (14:37)
[2021-02-21 16:00] VITALS: BP 135/80
[2021-02-21 20:00] VITALS: BP 135/59
[2021-02-22] VITALS: BP 132/52
[2021-02-22 04:00] VITALS: BP 130/56
[2021-02-22 08:00] VITALS: BP_SYST 100; BP_SYST 144; BP_DIAS 70; BP_DIAS 82
[2021-02-22] MEDS: RISPERIDONE 1MG TABLET PO SCH ×2 (08:53→18:44)
[2021-02-22] MEDS: POLYETHYLENE GLYCOL 3350 (17GM) 1 DOSE PACK PO PRN (09:44)
[2021-02-22] MEDS: ONDANSETRON 4MG ODT PO PRN (09:44)
[2021-02-22] MEDS ORDERED: ACETAMINOPHEN 325MG TABLET PO PRN (10:30)
[2021-02-22] MEDS ORDERED: ACETAMINOPHEN 650MG SUPP PR PRN (10:45)
[2021-02-22] MEDS ORDERED: NALOXONE HCL 0.4MG/ML VIAL IV PRN (10:45)
[2021-02-22] MEDS: HYDROCODONE/ACETAMINOPHEN 5/325MG TABLET PO PRN (11:27)
[2021-02-22 12:00] VITALS: BP 127/65
[2021-02-22] MEDS: ENOXAPARIN 40MG/0.4ML SYR SUBCUT SCH (12:43)
[2021-02-22] MEDS: DEXT 5%/0.45% NACL 1000ML 1,000 ML IV SCH (15:06)
[2021-02-22 16:00] VITALS: BP 157/91
[2021-02-22] MEDS: AZITHROMYCIN 500 MG in DEXT 5% WATER 250 ML IV SCH (16:48)
[2021-02-22] MEDS: CEFTRIAXONE 1,000 MG in DEXTROSE 5% WATER 50 ML IV SCH (18:44)
[2021-02-22 20:00] VITALS: BP 117/74
[2021-02-22] MEDS: LORAZEPAM 2MG/ML CPJ IV PRN (20:21)
[2021-02-22 21:53] LABS: CHLORIDE 104 mEq/L (98-107)
[2021-02-23 04:00] VITALS: BP 130/72
[2021-02-23 07:00] LABS: HEMATOCRIT. 31.5 % (42.0-52.0); HEMOGLOBIN. 10.7 g/dL (14.0-18.0); MEAN CORPUSCULAR HEMOGLOBIN 29.4 pg (28.0-32.0); MEAN CORPUSCULAR VOLUME 86.6 fL (80.0-94.0); MEAN PLATELET VOLUME 7.8 fl (7.4-10.4); PLATELET 172 x1000/uL (130-400); RED BLOOD CELL COUNT 3.64 mill/uL (4.7-6.1); RED CELL DISTRIBUTION WIDTH 15.4 % (11.6-14.6)
[2021-02-23 07:16] LABS: CHLORIDE 105 mEq/L (98-107)
[2021-02-23] MEDS: LORAZEPAM 2MG/ML CPJ IV PRN ×2 (07:36→15:48)
[2021-02-23 08:00] VITALS: BP 119/78
[2021-02-23] MEDS: RISPERIDONE 1MG TABLET PO SCH ×2 (08:40→17:29)
[2021-02-23] MEDS: HYDROCODONE/ACETAMINOPHEN 5/325MG TABLET PO PRN (09:59)
[2021-02-23 12:00] VITALS: BP 150/73
[2021-02-23] MEDS: AZITHROMYCIN 500 MG in DEXT 5% WATER 250 ML IV SCH (14:30)
[2021-02-23] MEDS: DEXT 5%/0.45% NACL 1000ML 1,000 ML IV SCH (14:30)
[2021-02-23] MEDS: CEFTRIAXONE 1,000 MG in DEXTROSE 5% WATER 50 ML IV SCH (15:42)
[2021-02-23 16:00] VITALS: BP 128/75
[2021-02-23 17:58] LABS: PLATELET ESTIMATE NORMAL
[2021-02-23 20:00] VITALS: BP 151/110
[2021-02-23] MEDS: GUAIFENESIN 200MG/10ML SUGAR FREE UDC PO PRN (20:30)
[2021-02-24] VITALS: BP 156/85
[2021-02-24 04:00] VITALS: BP 166/86
[2021-02-24 08:00] VITALS: BP 133/65
[2021-02-24] MEDS: RISPERIDONE 1MG TABLET PO SCH ×2 (08:39→17:16)
[2021-02-24 12:00] VITALS: BP 150/82
[2021-02-24] MEDS: AZITHROMYCIN 500 MG in DEXT 5% WATER 250 ML IV SCH (14:27)
[2021-02-24] MEDS: DEXT 5%/0.45% NACL 1000ML 1,000 ML IV SCH (14:28)
[2021-02-24 16:00] VITALS: BP 149/91
[2021-02-24] MEDS: CEFTRIAXONE 1,000 MG in DEXTROSE 5% WATER 50 ML IV SCH (17:16)
[2021-02-25 04:00] VITALS: BP 115/70
[2021-02-25 08:00] VITALS: BP 138/85
[2021-02-25] MEDS: RISPERIDONE 1MG TABLET PO SCH ×2 (08:54→17:51)
[2021-02-25] MEDS: LORAZEPAM 2MG/ML CPJ IV PRN (10:46)
[2021-02-25 12:00] VITALS: BP 151/101
[2021-02-25] MEDS: DEXT 5%/0.45% NACL 1000ML 1,000 ML IV SCH (15:18)
[2021-02-25] MEDS: AZITHROMYCIN 500 MG in DEXT 5% WATER 250 ML IV SCH (15:18)
[2021-02-25] MEDS: CLONIDINE 0.1MG TABLET PO PRN (15:25)
[2021-02-25 16:00] VITALS: BP 133/69
[2021-02-25] MEDS: CEFTRIAXONE 1,000 MG in DEXTROSE 5% WATER 50 ML IV SCH (17:51)
[2021-02-25 20:00] VITALS: BP 136/65
[2021-02-26 04:00] VITALS: BP 140/80
[2021-02-26 07:35] LABS: HEMATOCRIT. 29.4 % (42.0-52.0); HEMOGLOBIN. 9.9 g/dL (14.0-18.0); MEAN CORPUSCULAR HEMOGLOBIN 28.7 pg (28.0-32.0); MEAN CORPUSCULAR VOLUME 85.3 fL (80.0-94.0); MEAN PLATELET VOLUME 8.2 fl (7.4-10.4); PLATELET 163 x1000/uL (130-400); RED BLOOD CELL COUNT 3.45 mill/uL (4.7-6.1); RED CELL DISTRIBUTION WIDTH 15.3 % (11.6-14.6)
[2021-02-26 07:46] LABS: CHLORIDE 105 mEq/L (98-107)
[2021-02-26 08:00] VITALS: BP 147/87
[2021-02-26] MEDS: RISPERIDONE 1MG TABLET PO SCH ×2 (08:38→16:51)
[2021-02-26 12:00] VITALS: BP 121/72
[2021-02-26] MEDS: ASPIRIN 81MG EC TABLET PO SCH (13:08)
[2021-02-26] MEDS: DEXT 5%/0.45% NACL 1000ML 1,000 ML IV SCH (14:45)
[2021-02-26] MEDS: AZITHROMYCIN 500 MG in DEXT 5% WATER 250 ML IV SCH (15:05)
[2021-02-26 16:00] VITALS: BP 113/90
[2021-02-26] MEDS: CEFTRIAXONE 1,000 MG in DEXTROSE 5% WATER 50 ML IV SCH (16:51)
[2021-02-26 18:30] LABS: PLATELET ESTIMATE NORMAL
[2021-02-26 20:00] VITALS: BP 125/92
[2021-02-27] VITALS (7 sets, daily range): BP systolic 100–176; BP diastolic 42–89
[2021-02-27] MEDS: LORAZEPAM 2MG/ML CPJ IV PRN ×2 (04:30→12:49)
[2021-02-27] MEDS: RISPERIDONE 1MG TABLET PO SCH ×2 (09:00→17:10)
[2021-02-27] MEDS: ASPIRIN 81MG EC TABLET PO SCH (09:00)
[2021-02-27] MEDS ORDERED: LORAZEPAM 2MG/ML CPJ IV PRN (20:15)
[2021-02-27 21:32] LABS: HEMATOCRIT 31.3 % (42.0-52.0); HEMOGLOBIN 10.7 g/dL (14.0-18.0); MEAN CORPUSCULAR HEMOGLOBIN 28.8 pg (28.0-32.0); MEAN CORPUSCULAR VOLUME 84.2 fL (80.0-94.0); PLATELET 168 x1000/uL (130-400); RED BLOOD CELL COUNT 3.71 mill/uL (4.7-6.1); RED CELL DISTRIBUTION WIDTH 15.6 % (11.6-14.6)
[2021-02-28] VITALS: BP 121/69
[2021-02-28 04:00] VITALS: BP 137/64
[2021-02-28 08:00] VITALS: BP 137/74
[2021-02-28 08:28] LABS: HEMOGLOBIN. 10.6 g/dL (14.0-18.0); MEAN CORPUSCULAR HEMOGLOBIN 28.5 pg (28.0-32.0); MEAN CORPUSCULAR VOLUME 86.2 fL (80.0-94.0); MEAN PLATELET VOLUME 9.3 fl (7.4-10.4); PLATELET 205 x1000/uL (130-400); RED BLOOD CELL COUNT 3.72 mill/uL (4.7-6.1); RED CELL DISTRIBUTION WIDTH 15.4 % (11.6-14.6)
[2021-02-28 08:52] LABS: CHLORIDE 108 mEq/L (98-107)
[2021-02-28] MEDS: RISPERIDONE 1MG TABLET PO SCH ×2 (08:54→17:01)
[2021-02-28] MEDS: ASPIRIN 81MG EC TABLET PO SCH (08:54)
[2021-02-28 12:00] VITALS: BP 127/73
[2021-02-28 16:00] VITALS: BP 119/69
[2021-02-28 20:00] VITALS: BP 102/65
[2021-02-28 21:51] LABS: PLATELET ESTIMATE NORMAL
[2021-03-01] VITALS: BP 149/96
[2021-03-01 04:00] VITALS: BP 115/58
[2021-03-01 08:00] VITALS: BP 129/89
[2021-03-01] MEDS: ASPIRIN 81MG EC TABLET PO SCH (09:05)
[2021-03-01] MEDS: RISPERIDONE 1MG TABLET PO SCH ×2 (09:05→17:06)
[2021-03-01 12:00] VITALS: BP 130/69
[2021-03-01 16:00] VITALS: BP 146/88
[2021-03-01 20:00] VITALS: BP 160/70
[2021-03-01] MEDS: CLONIDINE 0.1MG TABLET PO PRN (21:08)
[2021-03-02] VITALS: BP 145/82
[2021-03-02 04:00] VITALS: BP 134/85
[2021-03-02 08:00] VITALS: BP 152/88
[2021-03-02] MEDS: RISPERIDONE 1MG TABLET PO SCH ×2 (08:05→16:30)
[2021-03-02] MEDS: ASPIRIN 81MG EC TABLET PO SCH (08:05)
[2021-03-02 12:00] VITALS: BP 116/69
[2021-03-02 16:00] VITALS: BP 163/97
[2021-03-02] MEDS: CLONIDINE 0.1MG TABLET PO PRN (17:56)
[2021-03-02 20:00] VITALS: BP 138/83
[2021-03-03] VITALS: BP 152/85
[2021-03-03 04:00] VITALS: BP 139/80
[2021-03-03 08:00] VITALS: BP 121/65
[2021-03-03] MEDS: ASPIRIN 81MG EC TABLET PO SCH (08:18)
[2021-03-03] MEDS: RISPERIDONE 1MG TABLET PO SCH ×2 (08:18→18:07)
[2021-03-03] MEDS: TAMSULOSIN HCL 0.4MG SR CAPSULE PO SCH (08:18)
[2021-03-03 12:00] VITALS: BP 172/99
[2021-03-03] MEDS: CLONIDINE 0.1MG TABLET PO PRN (12:21)
[2021-03-03 16:00] VITALS: BP 139/79
[2021-03-03 20:00] VITALS: BP 92/50
[2021-03-04] VITALS: BP 104/71
[2021-03-04 04:00] VITALS: BP 124/77
[2021-03-04 08:00] VITALS: BP 138/80
[2021-03-04] MEDS: TAMSULOSIN HCL 0.4MG SR CAPSULE PO SCH (08:48)
[2021-03-04] MEDS: RISPERIDONE 1MG TABLET PO SCH ×2 (08:48→16:25)
[2021-03-04] MEDS: ASPIRIN 81MG EC TABLET PO SCH (08:48)
[2021-03-04 12:00] VITALS: BP 128/76
[2021-03-04 16:00] VITALS: BP 131/74
[2021-03-04] MEDS: GUAIFENESIN 200MG/10ML SUGAR FREE UDC PO PRN (16:41)
[2021-03-04 20:00] VITALS: BP 125/69
[2021-03-05 01:15] VITALS: BP 117/69
[2021-03-05 04:00] VITALS: BP 132/85
[2021-03-05 08:00] VITALS: BP 144/88
[2021-03-05] MEDS: RISPERIDONE 1MG TABLET PO SCH ×2 (08:43→18:40)
[2021-03-05] MEDS: TAMSULOSIN HCL 0.4MG SR CAPSULE PO SCH (08:44)
[2021-03-05] MEDS: ASPIRIN 81MG EC TABLET PO SCH (08:44)
[2021-03-05 12:00] VITALS: BP 115/74
[2021-03-05 16:00] VITALS: BP 108/60
[2021-03-05 20:00] VITALS: BP 120/60
[2021-03-06] VITALS: BP 146/78
[2021-03-06 08:00] VITALS: BP 119/66
[2021-03-06] MEDS: TAMSULOSIN HCL 0.4MG SR CAPSULE PO SCH (08:36)
[2021-03-06] MEDS: RISPERIDONE 1MG TABLET PO SCH ×2 (08:37→17:59)
[2021-03-06] MEDS: ASPIRIN 81MG EC TABLET PO SCH (08:37)
[2021-03-06 10:42] LABS: BASOPHILS % 0.3 % (0.0-2.0); EOSINOPHILS % 0.3 % (0.0-5.0); HEMATOCRIT. 30.8 % (42.0-52.0); HEMOGLOBIN. 10.4 g/dL (14.0-18.0); LYMPHOCYTES % 12.3 % (20.0-50.0); MEAN CORPUSCULAR HEMOGLOBIN 28.8 pg (28.0-32.0); MEAN PLATELET VOLUME 8.3 fl (7.4-10.4); MONOCYTES % 6.2 % (2.0-8.0); NEUTROPHILS % 80.9 % (40.0-76.0); PLATELET 205 x1000/uL (130-400); RED BLOOD CELL COUNT 3.62 mill/uL (4.7-6.1); RED CELL DISTRIBUTION WIDTH 15.7 % (11.6-14.6)
[2021-03-06 10:49] LABS: CHLORIDE 109 mEq/L (98-107)
[2021-03-06 12:00] VITALS: BP 115/64
[2021-03-06 16:00] VITALS: BP 124/77
[2021-03-06 20:00] VITALS: BP 126/66
[2021-03-07] VITALS: BP 118/63
[2021-03-07 04:00] VITALS: BP 109/67
[2021-03-07 08:00] VITALS: BP 138/78
[2021-03-07] MEDS: RISPERIDONE 1MG TABLET PO SCH ×2 (09:00→17:35)
[2021-03-07] MEDS: TAMSULOSIN HCL 0.4MG SR CAPSULE PO SCH (09:00)
[2021-03-07] MEDS: ASPIRIN 81MG EC TABLET PO SCH (09:00)
[2021-03-07 12:00] VITALS: BP 126/72
[2021-03-07 16:00] VITALS: BP 110/74
[2021-03-07 20:00] VITALS: BP 198/74
[2021-03-08] VITALS: BP 115/51
[2021-03-08 04:00] VITALS: BP 116/53
[2021-03-08 08:00] VITALS: BP 120/88
[2021-03-08] MEDS: RISPERIDONE 1MG TABLET PO SCH ×2 (09:46→17:00)
[2021-03-08] MEDS: TAMSULOSIN HCL 0.4MG SR CAPSULE PO SCH (09:46)
[2021-03-08] MEDS: ASPIRIN 81MG EC TABLET PO SCH (09:46)
[2021-03-08 12:00] VITALS: BP 119/61
[2021-03-08] MEDS: DEXT 5%/0.45% NACL 1000ML 1,000 ML IV SCH (15:26)
[2021-03-08 16:00] VITALS: BP 103/81
[2021-03-08 20:00] VITALS: BP 106/60
[2021-03-09] VITALS: BP 126/63
[2021-03-09] MEDS: DEXT 5%/0.45% NACL 1000ML 1,000 ML IV SCH ×2 (03:56→17:40)
[2021-03-09 04:00] VITALS: BP 112/66
[2021-03-09 08:00] VITALS: BP 106/58
[2021-03-09] MEDS: RISPERIDONE 1MG TABLET PO SCH ×2 (09:00→17:00)
[2021-03-09] MEDS: ASPIRIN 81MG EC TABLET PO SCH (09:00)
[2021-03-09] MEDS: TAMSULOSIN HCL 0.4MG SR CAPSULE PO SCH (09:00)
[2021-03-09 12:00] VITALS: BP 101/41
[2021-03-09 16:00] VITALS: BP 97/60
[2021-03-09 20:00] VITALS: BP 101/47
[2021-03-10] VITALS: BP 110/80
[2021-03-10 04:00] VITALS: BP 93/48
[2021-03-10] MEDS: DEXT 5%/0.45% NACL 1000ML 1,000 ML IV SCH (06:00)
[2021-03-10 08:00] VITALS: BP 100/57
[2021-03-10] MEDS: TAMSULOSIN HCL 0.4MG SR CAPSULE PO SCH (08:52)
[2021-03-10] MEDS: RISPERIDONE 1MG TABLET PO SCH ×2 (08:52→16:45)
[2021-03-10] MEDS: ASPIRIN 81MG EC TABLET PO SCH (08:52)
[2021-03-10 12:00] VITALS: BP 95/45
[2021-03-10 20:00] VITALS: BP 120/56
[2021-03-11] VITALS (51 sets, daily range): BP systolic 48–138; BP diastolic 20–84
[2021-03-11] MEDS: DEXT 5%/0.45% NACL 1000ML 1,000 ML IV SCH ×3 (01:49→23:19)
[2021-03-11] MEDS: ASPIRIN 81MG EC TABLET PO SCH (08:29)
[2021-03-11] MEDS: TAMSULOSIN HCL 0.4MG SR CAPSULE PO SCH (08:29)
[2021-03-11] MEDS: RISPERIDONE 1MG TABLET PO SCH ×2 (08:29→16:05)
[2021-03-11] MEDS ORDERED: ATROPINE SULFATE 1MG/10ML SYR ONE (10:08)
[2021-03-11] MEDS ORDERED: VECURONIUM BROMIDE 10 MG/VIAL IV ONE (10:08)
[2021-03-11] MEDS ORDERED: ETOMIDATE 2MG/ML 10ML VIAL IV ONE (10:08)
[2021-03-11] MEDS ORDERED: NOREPINEPHRINE 8MG/250ML PMX 250 ML IV ONE (12:00)
[2021-03-11] MEDS ORDERED: SODIUM CHLORIDE 0.9% 1,000 ML IV ONE (12:00)
[2021-03-11] MEDS ORDERED: NOREPINEPHRINE 8 MG in DEXTROSE 5% WATER 250 ML IV PRN (12:30)
[2021-03-11] MEDS: NOREPINEPHRINE 32 MG in DEXT 5% WATER 218 ML IV PRN ×2 (12:30→21:05)
[2021-03-11] MEDS ORDERED: FENTANYL CITRATE/PF 2,500 MCG in SODIUM CHLORIDE 0.9% 200 ML IV PRN (13:00)
[2021-03-11 13:10] LABS: BG BASE EXCESS -10.7 mmol/L (-2.0-2.0); BG CARBOXYHEMOGLOBIN 0.3 % (0.5-1.5); BG DEOXYHEMOGLOBIN 0.7 % (0.0-5.0); BG HCO3 ACT 16.5 mmol/L (22.0-26.0); BG METHEMOGLOBIN 0.3 % (0.0-1.5); BG OXYGEN SATURATION 99.3 % (92.0-98.5); BG OXYHEMOGLOBIN 98.7 % (94.0-97.0); BG PCO2 41.5 mmHg (35.0-45.0); BG PH 7.216 (7.350-7.450); BG PO2 229.1 mmHg (75.0-100.0); BG SAMPLE SITE RIGHT BRACHIAL; BG TOTAL HEMOGLOBIN 11.4 g/dL (12.0-18.0); BG VENT MODE VENT - AC
[2021-03-11] MEDS ORDERED: SODIUM BICARBONATE 8.4% 1 MEQ/ML 50ML SYR IV NR (14:15)
[2021-03-11] MEDS: PHENYLEPHRINE 100 MG in DEXT 5% WATER 240 ML IV PRN ×2 (15:51→21:56)
[2021-03-11] MEDS ORDERED: IPRATROPIUM/ALBUTEROL 0.5-3(2.5)MG/3ML NEB HHN PRN (16:30)
[2021-03-11] MEDS: VASOPRESSIN 20 UNIT in SODIUM CHLORIDE 0.9% 99 ML IV PRN ×2 (16:45→23:20)
[2021-03-11 17:45] LABS: BG BASE EXCESS -6.1 mmol/L (-2.0-2.0); BG CARBOXYHEMOGLOBIN 0.8 % (0.5-1.5); BG DEOXYHEMOGLOBIN 7.9 % (0.0-5.0); BG HCO3 ACT 20.8 mmol/L (22.0-26.0); BG OXYHEMOGLOBIN 91.3 % (94.0-97.0); BG PCO2 46.2 mmHg (35.0-45.0); BG PH 7.271 (7.350-7.450); BG PO2 69.6 mmHg (75.0-100.0); BG SAMPLE SITE RIGHT BRACHIAL; BG TOTAL HEMOGLOBIN 13.1 g/dL (12.0-18.0); BG VENT MODE VENT - AC
[2021-03-11] MEDS ORDERED: VANCOMYCIN 1,750 MG in DEXT 5% WATER 500 ML IV NR (18:00)
[2021-03-11] MEDS: EPINEPHRINE 10 MG in SODIUM CHLORIDE 0.9% 240 ML IV PRN ×4 (18:04→23:45)
[2021-03-11] MEDS: PIPERACILLIN/TAZOBACTAM 3.375 G in DEXTROSE 5% WATER 50 ML IV SCH ×2 (18:12→23:19)
[2021-03-11 18:58] LABS: HEMATOCRIT. 33.2 % (42.0-52.0); HEMOGLOBIN. 10.9 g/dL (14.0-18.0); LYMPHOCYTES % 9.5 % (20.0-50.0); MEAN CORPUSCULAR HEMOGLOBIN 28.4 pg (28.0-32.0); MEAN CORPUSCULAR VOLUME 86.3 fL (80.0-94.0); MONOCYTES % 2.7 % (2.0-8.0); NEUTROPHILS % 87.8 % (40.0-76.0); RED BLOOD CELL COUNT 3.85 mill/uL (4.7-6.1); RED CELL DISTRIBUTION WIDTH 16.8 % (11.6-14.6)
[2021-03-11 19:08] LABS: INR 1.1; PROTHROMBIN TIME 11.6 sec (9.6-11.0)
[2021-03-11 19:13] LABS: CHLORIDE 109 mEq/L (98-107)
[2021-03-11] MEDS: IPRATROPIUM/ALBUTEROL 0.5-3(2.5)MG/3ML NEB HHN SCH (21:35)
[2021-03-12] VITALS (10 sets, daily range): BP systolic 45–82; BP diastolic 27–42
[2021-03-12] MEDS: IPRATROPIUM/ALBUTEROL 0.5-3(2.5)MG/3ML NEB HHN SCH (01:04)
[2021-03-12] MEDS: EPINEPHRINE 10 MG in SODIUM CHLORIDE 0.9% 240 ML IV PRN (01:43)
[2021-03-12] MEDS ORDERED: ATROPINE SULFATE 1MG/10ML SYR ONE (09:57)
[2021-03-12] MEDS ORDERED: EPINEPHRINE 0.1MG/ML (1:10,000) 10ML SYR ONE (09:57)
[2021-03-12] MEDS ORDERED: CALCIUM CHLORIDE 1GM/10ML SYR IV ONE (09:57)
[2021-03-12] MEDS ORDERED: DEXTROSE 50% WATER 50ML SYRINGE IV ONE (09:57)
[2021-03-12] MEDS ORDERED: SODIUM BICARBONATE 8.4% 1 MEQ/ML 50ML SYR IV ONE (09:57)
[2021-03-12] MEDS ORDERED: VANCOMYCIN 1250MG in DEXTROSE 5% WATER 250ML IV SCH (18:00)
== END 2021-03-12 04:16 | DRG 70 ==
LOC: ER 07:52 → 7EST 10:55 → EDBEDREQ 10:57 → EDBEDREQTM 10:57 → ENRESERV 16:52 → 7EST 01-23 08:49 → 6EST 01-30 11:33 → 7EST 02-22 14:01 → 6EST 03-10 17:39 → 5EST 03-11 12:16
PROVIDERS: ADMIT Internal Medicine; ATTEND Internal Medicine
PROC: 06HY33Z Insertion of Infusion Device into Lower Vein, Percutaneous Approach (ICD-10-PCS; 2021-03-11)
PROC: 0BH17EZ Insertion of Endotracheal Airway into Trachea, Via Natural or Artificial Opening (ICD-10-PCS; 2021-03-11)
PROC: 5A1935Z Respiratory Ventilation, Less than 24 Consecutive Hours (ICD-10-PCS; 2021-03-11)
PROC: 4A10X4Z Monitoring of Central Nervous Electrical Activity, External Approach (ICD-10-PCS; principal; 2021-03-12)
PROC: 5A12012 Performance of Cardiac Output, Single, Manual (ICD-10-PCS; 2021-03-12)
DX: G93.41 Metabolic encephalopathy (principal); J12.82 Pneumonia due to coronavirus disease 2019; U07.1 COVID-19; J96.00 Acute respiratory failure, unspecified whether with hypoxia or hypercapnia; A41.89 Other specified sepsis; J69.0 Pneumonitis due to inhalation of food and vomit; R65.21 Severe sepsis with septic shock; E46 Unspecified protein-calorie malnutrition; E87.2 Acidosis; G90.8 Other disorders of autonomic nervous system; E86.0 Dehydration; D64.9 Anemia, unspecified; F03.90 Unspecified dementia, unspecified severity, without behavioral disturbance, psychotic disturbance, mood disturbance, and anxiety; G47.00 Insomnia, unspecified; F40.240 Claustrophobia; G93.89 Other specified disorders of brain; K80.20 Calculus of gallbladder without cholecystitis without obstruction; R33.9 Retention of urine, unspecified; I46.9 Cardiac arrest, cause unspecified; Z82.49 Family history of ischemic heart disease and other diseases of the circulatory system; Z86.73 Personal history of transient ischemic attack (TIA), and cerebral infarction without residual deficits; Z68.23 Body mass index [BMI] 23.0-23.9, adult; Z78.1 Physical restraint status
CPT/HCPCS: 36415; 36600; 71045; 76700; 80048; 80053; 81003; 82375; 82607; 82805; 82962; 84443; 84484; 85025; 85027; 87426; 92950; 93005; 94002; 94640; 95816; 97161; 97164; 97166; 99285; C1893; J0456; J0461; J0696; J1200; J1650; J2060; J2270; J2370; J2405; J2543; J3010; J3370; J3490; J7050; J7060; Q0162; A4315; A5200